=== PATIENT | male | born 1965 | race African-American/Black ===

== ENCOUNTER 2021-08-16 11:38 | Emergency (ER) | payer MEDICAID ==
[~2021-08-16] VITALS: Ht 175.3 cm; Wt 77.0 kg
[2021-08-16 11:41] VITALS: BP 136/78
[2021-08-16] MEDS ORDERED: TETANUS, DIPHTHERIA, PERTUSSIS VAC/PF 0.5ML (>10YR OLD) IM ONE (12:15)
== END 2021-08-16 13:04 | disposition home or self-care (01) ==
LOC: ER 11:38
DX: Z53.21 Procedure and treatment not carried out due to patient leaving prior to being seen by health care provider (principal)
CPT/HCPCS: 73610

== ENCOUNTER 2022-07-02 18:54 | Emergency (ER) | payer MEDICAID ==
[~2022-07-02] VITALS: Ht 177.8 cm; Wt 85.0 kg
[~2022-07-02 18:54] MED LIST: AMLO10TA80 MT
[2022-07-03] MEDS ORDERED: ONDANSETRON 4MG ODT PO ONE (00:45)
[2022-07-03] MEDS ORDERED: LEVO750T68 MT (01:17)
[2022-07-03 01:32] VITALS: BP 111/69
== END 2022-07-03 01:32 | disposition home or self-care (01) ==
LOC: ER 18:54
DX: J18.9 Pneumonia, unspecified organism (principal)
CPT/HCPCS: 71045; 99283; Q0162

== ENCOUNTER 2023-11-20 02:41 | Emergency (ER) | payer MEDICAID, OTHER ==
[~2023-11-20] VITALS: Ht 175.3 cm; Wt 91.0 kg
[~2023-11-20 02:41] MED LIST changes: +LEVO750T68 MT
[2023-11-20 02:43] VITALS: O2SAT 100
[2023-11-20] MEDS: PANTOPRAZOLE SODIUM 40 MG/VIAL IV ONE (03:17)
[2023-11-20] MEDS: MAGNESIUM/ALUMINUM HYDROXIDE/SIMETHICONE 30ML UDC PO ONE (03:17)
[2023-11-20] MEDS: ONDANSETRON HCL 4MG/2ML INJ IV ONE (03:19)
[2023-11-20 03:32] LABS: BASOPHILS % 0.9 % (0.0-2.0); EOSINOPHILS % 1.1 % (0.0-5.0); HEMATOCRIT. 41.5 % (42.0-52.0); HEMOGLOBIN. 13.7 g/dL (14.0-18.0); LYMPHOCYTES % 32.4 % (20.0-50.0); MEAN CORPUSCULAR HEMOGLOBIN 31.2 pg (28.0-32.0); MEAN CORPUSCULAR HGB CONC 33.1 g/dL (31.0-37.0); MEAN CORPUSCULAR VOLUME 94.4 fL (80.0-94.0); MEAN PLATELET VOLUME 7.6 fl (7.4-10.4); MONOCYTES % 9.7 % (2.0-8.0); NEUTROPHILS % 55.9 % (40.0-76.0); PLATELET 419 x1000/uL (130-400); RED CELL DISTRIBUTION WIDTH 13.6 % (11.6-14.6); WHITE BLOOD COUNT 8.5 x1000/uL (4.5-11.0)
[2023-11-20 03:48] LABS: CLARITY URINE CLEAR (CLEAR); COLOR URINE YELLOW (YELLOW); GLUCOSE URINE NEGATIVE (NEGATIVE); KETONES URINE NEGATIVE (NEGATIVE); LEUKOCYTE ESTERASE URINE NEGATIVE (NEGATIVE); NITRITE URINE NEGATIVE (NEGATIVE); OCCULT BLOOD URINE NEGATIVE (NEGATIVE); PH URINE 6.5 (4.5-8.0); PROTEIN URINE TRACE (NEGATIVE); SPECIFIC GRAVITY URINE 1.028 (1.005-1.030)
[2023-11-20 04:06] LABS: *AMPHETAMINES SCREEN URINE NEGATIVE (NEGATIVE); *BARBITURATES SCREEN URINE NEGATIVE (NEGATIVE); *BENZODIAZEPINES SCREEN URINE NEGATIVE (NEGATIVE); *COCAINE SCREEN URINE PRESUMPTIVE POSITIVE (NEGATIVE); CANNABINOID URINE SCREEN PRESUMPTIVE POSITIVE (NEGATIVE); ECSTASY MDMA SCREEN URINE NEGATIVE (NEGATIVE); METHADONE URINE SCREEN Neg (NEGATIVE); OPIATES URINE SCREEN NEGATIVE (NEGATIVE); PHENCYCLIDINE URINE SCREEN PRESUMTIVE POSITIVE (NEGATIVE)
[2023-11-20 04:14] LABS: PROTHROMBIN TIME 11.3 sec (9.6-11.0)
[2023-11-20 04:16] LABS: ALANINE AMINOTRANSFERASE 25 IU/L (10-49); ALBUMIN 4.4 g/dL (3.2-4.8); ASPARTATE AMINOTRANSFERASE 24 IU/L (<34); BILIRUBIN TOTAL 0.3 mg/dL (0.1-1.0); CARBON DIOXIDE 25 mEq/L (21-32); CHLORIDE 106 mEq/L (98-107); CREATININE 0.9 mg/dL (0.6-1.3); GLUCOSE 107 mg/dL (70-105); POTASSIUM 3.9 mEq/L (3.5-5.1); PROTEIN TOTAL 7.7 g/dL (6.0-8.3); SODIUM 136 mEq/L (136-145); UREA NITROGEN BLOOD 9 mg/dL (9-23)
[2023-11-20 04:25] LABS: BACTERIA URINE 1+; RBC URINE NONE SEEN /hpf (0-2); SQUAMOUS EPITHELIAL CELL URINE FEW /lpf (RARE/1+); WBC URINE NONE SEEN /hpf (0-2)
[2023-11-20 04:35] LABS: ETHANOL BLOOD < 10 mg/dL (<10)
[2023-11-20] MEDS ORDERED: ONDA4TAB50 MT (05:49)
[2023-11-20] MEDS ORDERED: PROT40 MT (05:49)
[2023-11-20 06:07] VITALS: BP 148/101; PULSE 99; RESP 19; TEMP 98.5
== END 2023-11-20 06:07 | disposition home or self-care (01) ==
LOC: ER 02:41
DX: R10.9 Unspecified abdominal pain (principal); F19.90 Other psychoactive substance use, unspecified, uncomplicated; K76.89 Other specified diseases of liver; I10 Essential (primary) hypertension; Z00.00 Encounter for general adult medical examination without abnormal findings
CPT/HCPCS: 80053; 80305; 81003; 80320; 83605; 83690; 85025; 85610; 36415; 74176; 96365; 96375; 99285; J2405; C9113; Z7610 ×4; G0480